=== PATIENT | female | born 2000 | race Caucasian/White ===

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

== ENCOUNTER 2022-01-15 02:00 | Outpatient (CLI) | payer MEDICAID, SELFPAY | END 2022-01-15 02:01 | disposition home or self-care (01) | LOC: DS 02:01 | PROVIDERS: PCP Nurse Practitioner Pediatrics; Visit Provider Dietitian, Registered ==

== ENCOUNTER 2024-11-17 14:11 | Emergency (ER) | payer BC, SELFPAY ==
[2024-11-17 14:25] VITALS: BP 122/77; PULSE 95; RESP 12; TEMP 36.9; O2SAT 98
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
== END 2024-11-17 16:16 | disposition left against medical advice (07) ==
PROVIDERS: Emergency Provider Emergency Medicine; PCP Student in an Organized Health Care Education/Training Program
DX: O20.0 Threatened abortion (principal)
CPT/HCPCS: 80048; 86850; 86900; 86901; 99283; 84702; 85025

== ENCOUNTER 2025-01-05 00:02 | Emergency (ER) | payer BC, SELFPAY ==
[2025-01-05] MEDS: Acetaminophen 325 MG TAB 650 MG PO (01:10)
[2025-01-05 02:17] VITALS: BP 120/63; PULSE 87; RESP 18; TEMP 36.9; O2SAT 97
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
[2025-01-05 03:18] VITALS: BP 106/54; PULSE 94; RESP 16; TEMP 37.2; O2SAT 99
== END 2025-01-05 03:19 | disposition home or self-care (01) ==
PROVIDERS: Emergency Provider Student in an Organized Health Care Education/Training Program; PCP Advanced Practice Midwife
DX: O20.0 Threatened abortion (principal); Z3A.14 14 weeks gestation of pregnancy; W07.XXXA Fall from chair, initial encounter; Z53.20 Procedure and treatment not carried out because of patient's decision for unspecified reasons
CPT/HCPCS: 99283; 99282; 86850; 86900; 86901

== ENCOUNTER 2025-01-25 13:20 | Emergency (ER) | payer BC, MEDICAID, SELFPAY ==
[2025-01-25] VITALS (18 sets, daily range): BP systolic 94–107; BP diastolic 54–67; PULSE 76–100; RESP 14–20; TEMP 36.4; O2SAT 95–100
--- NOTE | 2025-01-25 13:15 | RT.EKG_ITS ---
APPROVED REPORT Exam: Resting ECG Reason for Exam: syncope Patient Location: E HR:85 bpm ECG Measurements Heart Rate 85 AXIS RI 134 P 58 QRSd 90 QRS 9 QT 355 T 13 QTc 422 Conclusion Sinus rhythm...normal P axis, V-rate 60- 99
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
== END 2025-01-25 17:15 | disposition left against medical advice (07) ==
PROVIDERS: Emergency Provider Student in an Organized Health Care Education/Training Program; PCP Advanced Practice Midwife
DX: O26.892 Other specified pregnancy related conditions, second trimester (principal); R55 Syncope and collapse; E86.0 Dehydration; Z59.02 Unsheltered homelessness; O9A.212 Injury, poisoning and certain other consequences of external causes complicating pregnancy, second trimester; W17.89XA Other fall from one level to another, initial encounter; Y93.89 Activity, other specified; Y92.830 Public park as the place of occurrence of the external cause; Z3A.16 16 weeks gestation of pregnancy
CPT/HCPCS: 76815; 80053; 93005; 99285; 70450; 83735; 84484; 85025; 93010; 99284

== ENCOUNTER 2025-03-06 00:29 | Outpatient (CLI) | payer MEDICAID, SELFPAY ==
--- NOTE | 2025-03-06 07:30 | DI.US_ITS ---
Exam(s) US OB 2-3 TRIMESTER EXAM: US OB 2-3 TRIMESTER CLINICAL HISTORY: Anatomy,z34.91. TECHNIQUE: Transabdominal obstetrical ultrasound performed. COMPARISON: No exams were available for comparison FINDINGS: Number of fetuses: 1 position: VARIED heart rate: 140bpm Placental location: There is a grade 1 anterior placenta. The placental tip is 4.6 cm from the internal os. No evidence of previa. Amniotic fluid index: Amount of fluid is within normal limits. ANATOMICAL SURVEY: Within normal limits. BIOMETRIC DATA: BPD: 5.75cm, 23weeks 4days HC: 20.68cm, 22weeks 5days AC: 17.55cm, 22weeks 3days FL: 3.64cm, 21weeks 4days Cisterna magna: 4.3mm Cerebellum: 2.25cm Lateral ventricle: 0.6 cm. EFW: 483.51g, 1lb 1.75oz, 61.9% Composite Age: 22weeks 4days ERICA: 07/06/2025 Heart Rate: 140bpm ANATOMICAL SURVEY: Four-chambered heart: Unremarkable. RVOT: Unremarkable. LVOT: Unremarkable. Left-sided stomach: Unremarkable. urinary bladder: Unremarkable. Bilateral kidneys: Unremarkable. Three-vessel cord: Unremarkable. Cord insertion: Unremarkable. Posterior fossa: Unremarkable. ventricles: Unremarkable. nose/lips: Unremarkable. Palate: Unremarkable. spine: Unremarkable. Two arms and two legs: Unremarkable. IMPRESSION: 1. Single live intrauterine gestation as above. 2. Normal anatomic survey. DATA REPOSITORY:
== END 2025-03-06 00:49 ==
PROVIDERS: Visit Provider Advanced Practice Midwife
DX: Z34.92 Encounter for supervision of normal pregnancy, unspecified, second trimester (principal); Z3A.20 20 weeks gestation of pregnancy
CPT/HCPCS: 76805

== ENCOUNTER 2025-03-21 11:18 | Outpatient (REF) | payer MEDICAID, SELFPAY ==
[2025-03-21 14:00] LABS: Cannabinoids THC Negative (Negative); METHADONE URINE SCREEN Negative (Negative)
[2025-03-22 11:53] LABS: Chlamydia Result Negative (Negative); GC Result Negative (Negative)
[2025-03-22 11:54] LABS: Fentanyl Scr w/Rfx Confirm Negative ng/mL (<1)
== END 2025-03-21 11:19 | disposition home or self-care (01) ==
LOC: LBN 11:18
PROVIDERS: Visit Provider Advanced Practice Midwife
DX: Z34.92 Encounter for supervision of normal pregnancy, unspecified, second trimester
CPT/HCPCS: 36415; 80053; 80307; 80348; 86787; 86803; 86850; 86900; 86901; 87340; 87389; 87491; 87591; 84443; 85025; 86762; 86780; 87086

== ENCOUNTER 2025-05-22 13:52 | Outpatient (REF) | payer BC, MEDICAID, SELFPAY ==
[2025-05-22 16:18] LABS: Cannabinoids THC Negative (Negative); METHADONE URINE SCREEN Negative (Negative)
[2025-05-23 11:37] LABS: Fentanyl Scr w/Rfx Confirm Negative ng/mL (<1)
== END 2025-05-22 13:53 | disposition home or self-care (01) ==
LOC: LBN 13:52
PROVIDERS: Visit Provider Advanced Practice Midwife
DX: Z34.93 Encounter for supervision of normal pregnancy, unspecified, third trimester
CPT/HCPCS: 80307; 80348

== ENCOUNTER 2025-05-28 07:23 | Outpatient (CLI) | payer BC, MEDICAID, SELFPAY ==
[2025-05-28] MEDS: Lidocaine/Prilocaine Cream 5 GM TUBE TP (10:17)
[2025-05-28 10:26] VITALS: BP 117/71; PULSE 86; TEMP 36.8
[2025-05-28 10:29] VITALS: BP 117/71; PULSE 86
[2025-05-28 12:24] LABS: HCT 31.4 % (36.0-46.0); HGB 10.5 g/dL (11.2-15.7); MCH 28.6 pg (27.0-33.0); MCHC 33.4 % (32.0-36.0); MCV 86 fL (80-95); MPV 10.4 fL (8.0-11.0); Platelet Count 300 10^3/uL (130-400); RBC 3.67 10^6/uL (3.93-5.22); RDW 12.2 % (11.7-14.6); RDW-SD 37.4 fL; WBC 13.18 10^3/uL (4.4-10.8)
[2025-05-28 16:51] LABS: Hemoglobin A1C 5.0 % (<5.7)
--- NOTE | 2025-05-28 17:04 | W.OBNST ---
Date of service: 05/28/25 Time of Service: 12:00 NST Evaluation Reason for NST Reasons for Nonstress Test: OTHER, SEE COMMENT Reason for NST Other: inadequate care Gestational Age Gestational Age in Weeks and Days: 33 Weeks and 5Days Test and Monitor Explained Test/Monitor Explained: Test Explained and Monitor Explained Vital Signs Blood Pressure: 117/71 Pulse: 86 Temperature: 98.2 F NST Information Date on Monitor: 05/28/25 Time on Monitor: 10:22 Date off Monitor: 05/28/25 Time off Monitor: 10:53 Total Time on Monitor: 31 NST Interventions: PO Hydration and Meal Given Contraction Frequency: None NST Evaluation Patient States Movement: Present FHR Baseline: 135 Variability: Moderate 6-25 bpm Accelerations: 15x15 Decelerations: None NST Results: Reactive Note Ultrasound Done: N/A. NST Note NST Reviewed and Verified by: Alberta Gregory
[2025-05-28 17:05] VITALS: BP 117/71; PULSE 86; TEMP 36.8
[2025-05-29 09:57] LABS: Hepatitis C Ab w Rflx HCV PCR Negative (Negative)
[2025-05-29 10:14] LABS: Rubella IgG Ab (UVM) Positive (See Note)
[2025-05-29 11:16] LABS: Cannabinoids THC Negative (Negative); METHADONE URINE SCREEN Negative (Negative)
[2025-05-29 11:39] LABS: Fentanyl Scr w/Rfx Confirm Negative ng/mL (<1)
[2025-05-29 11:54] LABS: HIV-1/2 Ag & Ab Screen Negative (Negative)
[2025-05-29 13:29] LABS: Chlamydia Result Negative (Negative); GC Result Negative (Negative)
[2025-05-30 18:02] LABS: Syphilis IgG w/Reflex Nonreactive (Nonreactive)
== END 2025-05-28 13:30 ==
LOC: NCHCN 07:23 → OBS 09:56
PROVIDERS: Advanced Practice Midwife; Visit Provider Advanced Practice Midwife
DX: Z3A.33 33 weeks gestation of pregnancy (principal); O09.33 Supervision of pregnancy with insufficient antenatal care, third trimester
CPT/HCPCS: 36415; 80307; 80348; 82950; 85027; 86787; 86803; 86850; 86900; 86901; 87340; 87389; 87491; 87591; 59025; 83036; 86762; 86780

== ENCOUNTER 2025-06-04 08:45 | Outpatient (CLI) | payer BC, MEDICAID, SELFPAY ==
[2025-06-04 10:15] VITALS: BP 133/80; PULSE 102; RESP 18; TEMP 36.8; O2SAT 96
[2025-06-04 10:59] VITALS: BP 133/80; PULSE 97; TEMP 36.8
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
[2025-06-04 13:55] LABS: Glucose Negative (Negative)
[2025-06-04 14:02] LABS: C & S Indicated? No; RBC Negative HPF (0-2); WBC 0-2 HPF (0-5)
[2025-06-04 14:19] LABS: Fetal Fibronectin Negative (Negative)
--- NOTE | 2025-06-04 15:33 | W.OBNST ---
Date of service: 06/04/25 Time of Service: 15:33 NST Evaluation Reason for NST Reasons for Nonstress Test: LABOR Gestational Age Gestational Age in Weeks and Days: 34 Weeks and 5Days Test and Monitor Explained Test/Monitor Explained: Test Explained, Monitor Explained and Patient Verbalized Understanding Vital Signs Blood Pressure: 133/80 Pulse: 97 Temperature: 98.2 F NST Information Date on Monitor: 06/04/25 Time on Monitor: 10:45 NST Interventions: PO Hydration and Notify Provider NST Evaluation Patient States Movement: Present Note Ultrasound Done: N/A. NST Note Note: Sully called this morning and reported vaginal bleeding and cramping. She had intercourse last night. No evidence of labor. UA shows ketones. Neg blood or leukocytes or nitrites. Contraction monitoring limited by habitus. US performed and is WNL and vertex with >5 cm cervical length. Sterile speculum exam - no blood visualized. FFN taken and neg. Vaginal pathogen screen neg. GBS taken Cervical exam. No presenting part in pelvis and cervix long and closed. pelvic rest recommended x 1 week. Signs of labor reviewed. rest encouraged. NST Reviewed and Verified by: Chante De Leon
[2025-06-04 15:37] VITALS: BP 133/80; PULSE 97; TEMP 36.8
[2025-06-04] MEDS: Loperamide 2 MG CAP 4 MG PO (15:59)
--- NOTE | 2025-06-05 07:01 | W.OBNST ---
Date of service: 06/04/25 Time of Service: 17:00 NST Evaluation Reason for NST Reasons for Nonstress Test: LABOR Gestational Age Gestational Age in Weeks and Days: 34 Weeks and 5Days Test and Monitor Explained Test/Monitor Explained: Test Explained, Monitor Explained and Patient Verbalized Understanding Vital Signs Blood Pressure: 133/80 Pulse: 97 Temperature: 98.2 F NST Information Date on Monitor: 06/04/25 Time on Monitor: 10:45 Date off Monitor: 06/04/25 Time off Monitor: 11:05 Total Time on Monitor: 20 NST Interventions: PO Hydration and Notify Provider Contraction Frequency: none NST Evaluation Patient States Movement: Present FHR Baseline: 145 Variability: Moderate 6-25 bpm Accelerations: 15x15 Decelerations: None NST Results: Reactive Note Ultrasound Done: N/A. NST Note Note: Sully came in reporting cramping and nausea and diarrhea. She was drinking rootbeer on arrival and reported that nausea had improved. The cramping began at 0200 and was followed by diarrhea. SPO fluids were provided. She declined speculum exam but vaginal pathogen screen and gbs were taken as well as FFN swab. UA was WNL without culture indicated. SVE performed and cervix was post/closed and 50% effaced. Vidya ate lunch. US ordered for tomorrow morning for size less than dates. She declined GTT draw today. Will reschedule GTT. She was discharged to home with instructios to attend US appt. tomorrow and call with worsening pain or persistent symptoms. NST Reviewed and Verified by: Chante De Leon
[2025-06-05 07:05] VITALS: BP 133/80; PULSE 97; TEMP 36.8
== END 2025-06-04 16:09 ==
LOC: BCD 08:45 → OBS 10:10
PROVIDERS: Visit Provider Advanced Practice Midwife
DX: O47.03 False labor before 37 completed weeks of gestation, third trimester (principal); Z3A.34 34 weeks gestation of pregnancy
CPT/HCPCS: 59025; 81003; 81015; 82731; 87081; 87480; 87510; 87660

== ENCOUNTER 2025-06-05 03:31 | Outpatient (CLI) | payer BC, MEDICAID, SELFPAY ==
--- NOTE | 2025-06-05 05:45 | DI.US_ITS ---
Exam(s) US OB FILIBERTO WEIGHT EXAM: US OB FILIBERTO WEIGHT CLINICAL HISTORY: size less than dates,fundal ht low,O26.849. TECHNIQUE: Transabdominal obstetrical ultrasound performed. COMPARISON: US US OB 2-3 TRIMESTER from 03/06/2025 FINDINGS: Number of fetuses: 1 position: CEPHALIC Placental location: There is a grade 1-2 anterior placenta. No evidence of previa. BIOMETRIC DATA: BPD: 8.97cm, 36weeks 2days HC: 32.78cm, 37weeks 2days AC: 29.5cm, 33weeks 3days FL: 6.23cm, 32weeks 2days EFW: 2,271g, 5lb 1.94oz, 18.4% Composite Age: 34weeks 6days ERICA: 07/11/2025 Heart Rate: 133bpm Amniotic fluid index: 18.98cm. The largest pocket measures 7.3 cm. IMPRESSION: 1. Single live intrauterine gestation as above. 2. Estimated weight is 2271gms. This is the 18th percentile. The femur length is in the less than 10th percentile. 3. Amniotic fluid index is 19 cm. The largest pocket measures 7.3 cm. DATA REPOSITORY:
== END 2025-06-05 03:51 ==
PROVIDERS: Visit Provider Advanced Practice Midwife
DX: O26.843 Uterine size-date discrepancy, third trimester (principal); Z3A.37 37 weeks gestation of pregnancy
CPT/HCPCS: 76816

== ENCOUNTER 2025-06-18 01:11 | Outpatient (CLI) | payer MEDICAID, SELFPAY ==
--- NOTE | 2025-06-18 07:15 | DI.US_ITS ---
Exam(s) US OB FILIBERTO WEIGHT EXAM: US OB FILIBERTO WEIGHT CLINICAL HISTORY: History of inadequate care, O09.30. TECHNIQUE: Transabdominal obstetrical ultrasound performed. COMPARISON: US US OB FILIBERTO WEIGHT from 06/05/2025 FINDINGS: Number of fetuses: 1 position: CEPHALIC Placental location: There is a grade 1 anterior placenta. No evidence of previa. BIOMETRIC DATA: BPD: 9.06cm, 36weeks 5days HC: 33.04cm, 37weeks 4days AC: 32.32cm, 36weeks 2days FL: 6.55cm, 33weeks 5days. This is the less than 3rd percentile. EFW: 2,771.06g, 6lb 3.36oz, 30.1% Composite Age: 36weeks 1day ERICA: 07/15/2025 Heart Rate: 153bpm Amniotic fluid index: 21.68cm. The largest pocket is 6.2 cm. IMPRESSION: 1. Single live intrauterine gestation as above. 2. Estimated weight is 2771gms. This is the 30th percentile. 3. Amniotic fluid index is 21.7 cm. The largest pocket is 6.2 cm. DATA REPOSITORY:
== END 2025-06-18 01:31 ==
LOC: DI 01:12
PROVIDERS: Visit Provider Family Medicine
DX: O09.33 Supervision of pregnancy with insufficient antenatal care, third trimester (principal)
CPT/HCPCS: 76816

== ENCOUNTER 2025-07-02 13:29 | Outpatient (REF) | payer MEDICAID, SELFPAY | END 2025-07-02 13:30 | disposition home or self-care (01) | LOC: LBN 13:29 | PROVIDERS: Visit Provider Advanced Practice Midwife | DX: Z34.93 Encounter for supervision of normal pregnancy, unspecified, third trimester | CPT/HCPCS: 87081 ==

== ENCOUNTER 2025-07-08 10:45 | Outpatient (CLI) | payer MEDICAID, SELFPAY ==
[2025-07-08 10:48] VITALS: BP 134/83; PULSE 105; TEMP 36.7
[2025-07-08 10:54] VITALS: BP 134/94; PULSE 99
[2025-07-08 11:11] VITALS: BP 134/83; PULSE 105
[2025-07-08 11:54] VITALS: BP 127/90; PULSE 99
[2025-07-08] MEDS: Acetaminophen 500 MG TAB 1000 MG PO (11:54)
--- NOTE | 2025-07-08 11:54 | PDOC.NST_ITS ---
Date of service: 07/08/25 Time of Service: 11:54 NST Evaluation Reason for NST Reasons for Nonstress Test: OTHER, SEE COMMENT Reason for NST Other: confirm FHR baseline Gestational Age Gestational Age in Weeks and Days: 39 Weeks and 4Days Test and Monitor Explained Test/Monitor Explained: Test Explained, Monitor Explained and Patient Verbalized Understanding Vital Signs Blood Pressure: 134/83 Pulse: 105 Temperature: 98.1 F NST Information Date on Monitor: 07/08/25 Time on Monitor: 10:51 Date off Monitor: 07/08/25 Time off Monitor: 11:55 Total Time on Monitor: 64 NST Interventions: PO Hydration Contraction Frequency: rare NST Evaluation Patient States Movement: Present FHR Baseline: 120 Variability: Moderate 6-25 bpm Accelerations: 15x15 Decelerations: None NST Results: Reactive Note Ultrasound Done: N/A. NST Note Note: Scheduled for IOL tomorrow @ 39 wks for elective/social concern, FOB being released [facility] [place] [facility] tomorrow and pt concerned for safety, referral to [facility] already in place Noted mild range BP today with dyastolic @ 90, CMP and CBC drawn and urine pr/cr sent Will call pt with results, consider starting IOL this afternoon if pt meets criteria for pre-eclampsia NST Reviewed and Verified by: Hyacinth Wong
[2025-07-08 11:57] VITALS: BP 134/83; PULSE 105; TEMP 36.7
[2025-07-08 12:37] LABS: HCT 31.4 % (36.0-46.0); HGB 10.5 g/dL (11.2-15.7); MCH 27.6 pg (27.0-33.0); MCHC 33.4 % (32.0-36.0); MCV 83 fL (80-95); MPV 10.1 fL (8.0-11.0); Platelet Count 332 10^3/uL (130-400); RBC 3.80 10^6/uL (3.93-5.22); RDW 12.6 % (11.7-14.6); RDW-SD 37.9 fL; WBC 16.40 10^3/uL (4.4-10.8)
[2025-07-08 13:06] LABS: ALT 9 U/L (14-59); AST 9 U/L (15-37); Albumin 2.4 g/dL (3.4-5.0); Alkaline Phosphatase 184 U/L (46-116); Anion Gap 11.7 mmol/L (3-11); BUN 6 mg/dL (7-18); Bilirubin, Total 0.2 mg/dL (0.2-1.0); CO2 22.3 mmol/L (21.0-32.0); Calcium 9.1 mg/dL (8.5-10.1); Chloride 104 mmol/L (98-107); Estimated GFR 135.07 (mL/min/1.73m2); Glucose 105 mg/dL (74-106); Potassium 3.7 mmol/L (3.5-5.1); Sodium 138 mmol/L (136-145); Total Protein 7.2 g/dL (6.4-8.2)
[2025-07-08 13:08] LABS: PROTEIN < 6.0 mg/dL
== END 2025-07-08 12:50 ==
LOC: BCD 10:45 → OBS 10:47
PROVIDERS: Visit Provider Advanced Practice Midwife
DX: Z3A.39 39 weeks gestation of pregnancy (principal); O36.8331 Maternal care for abnormalities of the fetal heart rate or rhythm, third trimester, fetus 1
CPT/HCPCS: 80053; 85027; 59025; 82565; 84156

== ENCOUNTER 2025-07-09 14:44 | Inpatient (IN) | payer MEDICAID, SELFPAY ==
[2025-07-09 14:07] VITALS: BP 127/85; PULSE 105; TEMP 36.7
[2025-07-09 15:40] LABS: Cannabinoids THC Negative (Negative)
[2025-07-09 15:41] LABS: Abs Immature Grans 0.25 10^3/uL (0.0-0.06); HCT 29.9 % (36.0-46.0); HGB 9.8 g/dL (11.2-15.7); Immature Grans % 1.7 %; MCH 27.0 pg (27.0-33.0); MCHC 32.8 % (32.0-36.0); MCV 82 fL (80-95); MPV 10.1 fL (8.0-11.0); Platelet Count 314 10^3/uL (130-400); RBC 3.63 10^6/uL (3.93-5.22); RDW 12.7 % (11.7-14.6); RDW-SD 38.0 fL; WBC 14.55 10^3/uL (4.4-10.8)
[2025-07-09 15:55] LABS: Uric Acid 3.1 mg/dL (2.6-6.0)
[2025-07-09 15:57] LABS: ALT 10 U/L (14-59); AST 9 U/L (15-37); Albumin 2.3 g/dL (3.4-5.0); Alkaline Phosphatase 172 U/L (46-116); Anion Gap 10.0 mmol/L (3-11); BUN 9 mg/dL (7-18); Bilirubin, Total 0.2 mg/dL (0.2-1.0); CO2 22.0 mmol/L (21.0-32.0); Calcium 8.7 mg/dL (8.5-10.1); Chloride 105 mmol/L (98-107); Glucose 81 mg/dL (74-106); Potassium 4.0 mmol/L (3.5-5.1); Sodium 137 mmol/L (136-145); Total Protein 7.0 g/dL (6.4-8.2)
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
[2025-07-09] MEDS: miSOPROStol 50 MCG TAB PO ×2 (16:50→21:39)
[2025-07-09 16:53] VITALS: BP 129/71; PULSE 106; TEMP 36.4
[2025-07-09 18:38] VITALS: BP 128/69; PULSE 91; TEMP 37
--- NOTE | 2025-07-09 21:36 | W.PM.OBNL1 ---
Date of service: 07/09/25 Time of Service: 21:36 Informed Consent Informed Consent: Induction of Labor Pelvic Exam Dilation: 1.5 Effacement (%): 75 station: -2 Cervix Position: mid Consistency: soft Vaginal Exam Presentation: Cephalic Contractions Monitor Mode: External Contraction Frequency(min): every 2-4 Contraction Duration(sec): 60 Intensity: Mild/Moderate Fetus A Monitor: External (US) Heart Rate Baseline: 120 Presentation: Cephalic Variability: Moderate (6-25 BPM) Categories: Category I FHR Rhythm: Regular Accelerations: 15 X 15 Decelerations: None Assessment and Plan Assessment and plan (1) Encounter for induction of labor: Status: Acute Assessment and plan: Comfort measures and nitrous oxide for discomfort. Will continue to assess labor progress. Anticipate . (2) Anemia affecting : Status: Acute Assessment and plan: I.V. access and active management of 3rd stage planned. Objective Abnormal lab results 07/09/25 Range/Units 15:30 WBC 14.55 H (4.4-10.8) 10^3/uL RBC 3.63 L (3.93-5.22) 10^6/uL Hgb 9.8 L (11.2-15.7) g/dL Hct 29.9 L (36.0-46.0) % Absolute Neutrophils 10.40 H (1.2-6.7) 10^3/uL Absolute Monocytes 1.27 H (0.1-0.8) 10^3/uL Creatinine 0.5 L (0.55-1.02) mg/dL AST 9 L (15-37) U/L ALT 10 L (14-59) U/L Alkaline Phosphatase 172 H (46-116) U/L Albumin 2.3 L (3.4-5.0) g/dL Temp Pulse BP 98.6 F 91 H 128/69 07/09/25 18:38 07/09/25 18:38 07/09/25 18:38 Laboratory Results WBC 14.55 10^3/uL (4.4-10.8) H 07/09/25 15:30 RBC 3.63 10^6/uL (3.93-5.22) L 07/09/25 15:30 Hgb 9.8 g/dL (11.2-15.7) L 07/09/25 15:30 Hct 29.9 % (36.0-46.0) L 07/09/25 15:30 MCV 82 fL (80-95) 07/09/25 15:30 MCH 27.0 pg (27.0-33.0) 07/09/25 15:30 MCHC 32.8 % (32.0-36.0) 07/09/25 15:30 RDW 12.7 % (11.7-14.6) 07/09/25 15:30 Plt Count 314 10^3/uL (130-400) 07/09/25 15:30 MPV 10.1 fL (8.0-11.0) 07/09/25 15: Immature Gran % 1.7 % 07/09/25 15:30 Neutrophils % 71.5 % 07/09/25 15:30 Lymphocytes % 17.0 % 07/09/25 15:30 Monocytes % 8.7 % 07/09/25 15:30 Eosinophils % 0.7 % 07/09/25 15:30 Basophils % 0.4 % 07/09/25 15:30 Nucleated RBC % 0.0 % (0.0-0.3) 07/09/25 15:30 Absolute Neutrophils 10.40 10^3/uL (1.2-6.7) H 07/09/25 15:30 Absolute Lymphocytes 2.47 10^3/uL (1.2-3.4) 07/09/25 15:30 Absolute Monocytes 1.27 10^3/uL (0.1-0.8) H 07/09/25 15:30 Absolute Eosinophils 0.10 10^3/uL (0.0-0.7) 07/09/25 15:30 Absolute Basophils 0.06 10^3/uL (0.0-0.2) 07/09/25 15:30 Sodium 137 mmol/L (136-145) 07/09/25 15:30 Potassium 4.0 mmol/L (3.5-5.1) 07/09/25 15:30 Chloride 105 mmol/L (98-107) 07/09/25 15:30 Carbon Dioxide 22.0 mmol/L (21.0-32.0) 07/09/25 15:30 Anion Gap 10.0 mmol/L (3-11) 07/09/25 15:30 BUN 9 mg/dL (7-18) 07/09/25 15:30 Creatinine 0.5 mg/dL (0.55-1.02) L 07/09/25 15:30 Est GFR (CKD-EPI 2020) 135.07 (mL/min/1.73m2) 07/09/25 15:30 Glucose 81 mg/dL (74-106) 07/09/25 15:30 Uric Acid 3.1 mg/dL (2.6-6.0) 07/09/25 15:30 Calcium 8.7 mg/dL (8.5-10.1) 07/09/25 15:30 Total Bilirubin 0.2 mg/dL (0.2-1.0) 07/09/25 15:30 AST 9 U/L (15-37) L 07/09/25 15:30 ALT 10 U/L (14-59) L 07/09/25 15:30 Alkaline Phosphatase 172 U/L (46-116) H 07/09/25 15:30 Total Protein 7.0 g/dL (6.4-8.2) 07/09/25 15:30 Albumin 2.3 g/dL (3.4-5.0) L 07/09/25 15:30 Urine Opiates Screen Negative (Negative) 07/09/25 14:00 Urine Methadone Screen Negative (Negative) 07/09/25 14:00 Ur Barbiturates Screen Negative (Negative) 07/09/25 14:00 Ur Tricyclics Screen Negative (Negative) 07/09/25 14:00 Ur Amphetamines Screen Negative (Negative) 07/09/25 14:00 U Benzodiazepines Scrn Negative (Negative) 07/09/25 14:00 Urine Cocaine Screen Negative (Negative) 07/09/25 14:00 Ur THC Screen Negative (Negative) 07/09/25 14:00 ABO/Rh A Positive 07/09/25 15:30 Antibody Screen NEGATIVE 07/09/25 15:30 Vital Signs Reviewed: Yes Subjective Patient Reports: New Complaints Interval history since last seen: Sully took a nap. She is experiencing discomfort with contractions. Results Hemoglobin/Hematocrit: Hgb 9.8 g/dL (11.2-15.7) L 07/09/25 15:30 Hct 29.9 % (36.0-46.0) L 07/09/25 15:30 Abnormal Lab Findings: Abnormal Labs 07/09/25 15:30 WBC 14.55 H RBC 3.63 L Hgb 9.8 L Hct 29.9 L Absolute Neutrophils 10.40 H Absolute Monocytes 1.27 H Creatinine 0.5 L AST 9 L ALT 10 L Alkaline Phosphatase 172 H Albumin 2.3 L
[2025-07-09] MEDS: Normal Saline Flush 10 ML SYR IVP (21:39)
[2025-07-09 21:42] VITALS: BP 131/85; PULSE 100
[2025-07-09 21:44] VITALS: TEMP 36.6
[2025-07-09] MEDS: NALBUPHINE 5 MG in Normal Saline 50 ML 100 MG IV (23:11)
[2025-07-10] VITALS (16 sets, daily range): BP systolic 107–155; BP diastolic 61–92; PULSE 84–109; RESP 16–20; TEMP 36.5–37; O2SAT 96–98
[2025-07-10] MEDS: NALBUPHINE 5 MG in Normal Saline 50 ML 100 MG IV (00:41)
[2025-07-10] MEDS: Normal Saline Flush 10 ML SYR IVP (00:53)
--- NOTE | 2025-07-10 01:51 | W.PM.OBNL1 ---
Date of service: 07/10/25 Time of Service: 01:51 Informed Consent Informed Consent: Induction of Labor Pelvic Exam Dilation: 5 Effacement (%): 100 station: -1 Cervix Position: mid Consistency: soft Vaginal Exam Presentation: Cephalic Contractions Monitor Mode: External Contraction Frequency(min): every 3 min Contraction Duration(sec): 60 Intensity: Moderate/Strong Fetus A Monitor: Doppler Heart Rate Baseline: 120 Presentation: Cephalic Decelerations: None Amniotic Membrane Status: Intact Assessment and Plan Assessment and plan (1) Encounter for induction of labor: Status: Acute Assessment and plan: fentanyl IV 25 mcg ordered. Will assist with position changes and consider AROM. Anticpate . Objective Abnormal lab results 07/09/25 Range/Units 15:30 WBC 14.55 H (4.4-10.8) 10^3/uL RBC 3.63 L (3.93-5.22) 10^6/uL Hgb 9.8 L (11.2-15.7) g/dL Hct 29.9 L (36.0-46.0) % Absolute Neutrophils 10.40 H (1.2-6.7) 10^3/uL Absolute Monocytes 1.27 H (0.1-0.8) 10^3/uL Creatinine 0.5 L (0.55-1.02) mg/dL AST 9 L (15-37) U/L ALT 10 L (14-59) U/L Alkaline Phosphatase 172 H (46-116) U/L Albumin 2.3 L (3.4-5.0) g/dL Temp Pulse BP 98 F 85 132/72 07/09/25 21:44 07/10/25 00:43 07/10/25 00:43 Laboratory Results WBC 14.55 10^3/uL (4.4-10.8) H 07/09/25 15:30 RBC 3.63 10^6/uL (3.93-5.22) L 07/09/25 15:30 Hgb 9.8 g/dL (11.2-15.7) L 07/09/25 15:30 Hct 29.9 % (36.0-46.0) L 07/09/25 15:30 MCV 82 fL (80-95) 07/09/25 15:30 MCH 27.0 pg (27.0-33.0) 07/09/25 15:30 MCHC 32.8 % (32.0-36.0) 07/09/25 15:30 RDW 12.7 % (11.7-14.6) 07/09/25 15:30 Plt Count 314 10^3/uL (130-400) 07/09/25 15:30 MPV 10.1 fL (8.0-11.0) 07/09/25 15:30 Immature Gran % 1.7 % 07/09/25 15:30 Neutrophils % 71.5 % 07/09/25 15:30 Lymphocytes % 17.0 % 07/09/25 15:30 Monocytes % 8.7 % 07/09/25 15:30 Eosinophils % 0.7 % 07/09/25 15:30 Basophils % 0.4 % 07/09/25 15:30 Nucleated RBC % 0.0 % (0.0-0.3) 07/09/25 15:30 Absolute Neutrophils 10.40 10^3/uL (1.2-6.7) H 07/09/25 15:30 Absolute Lymphocytes 2.47 10^3/uL (1.2-3.4) 07/09/25 15:30 Absolute Monocytes 1.27 10^3/uL (0.1-0.8) H 07/09/25 15:30 Absolute Eosinophils 0.10 10^3/uL (0.0-0.7) 07/09/25 15:30 Absolute Basophils 0.06 10^3/uL (0.0-0.2) 07/09/25 15:30 Sodium 137 mmol/L (136-145) 07/09/25 15:30 Potassium 4.0 mmol/L (3.5-5.1) 07/09/25 15:30 Chloride 105 mmol/L (98-107) 07/09/25 15:30 Carbon Dioxide 22.0 mmol/L (21.0-32.0) 07/09/25 15:30 Anion Gap 10.0 mmol/L (3-11) 07/09/25 15:30 BUN 9 mg/dL (7-18) 07/09/25 15:30 Creatinine 0.5 mg/dL (0.55-1.02) L 07/09/25 15:30 Est GFR (CKD-EPI 2020) 135.07 (mL/min/1.73m2) 07/09/25 15:30 Glucose 81 mg/dL (74-106) 07/09/25 15:30 Uric Acid 3.1 mg/dL (2.6-6.0) 07/09/25 15:30 Calcium 8.7 mg/dL (8.5-10.1) 07/09/25 15:30 Total Bilirubin 0.2 mg/dL (0.2-1.0) 07/09/25 15:30 AST 9 U/L (15-37) L 07/09/25 15:30 ALT 10 U/L (14-59) L 07/09/25 15:30 Alkaline Phosphatase 172 U/L (46-116) H 07/09/25 15:30 Total Protein 7.0 g/dL (6.4-8.2) 07/09/25 15:30 Albumin 2.3 g/dL (3.4-5.0) L 07/09/25 15:30 Urine Opiates Screen Negative (Negative) 07/09/25 14:00 Urine Methadone Screen Negative (Negative) 07/09/25 14:00 Ur Barbiturates Screen Negative (Negative) 07/09/25 14:00 Ur Tricyclics Screen Negative (Negative) 07/09/25 14:00 Ur Amphetamines Screen Negative (Negative) 07/09/25 14:00 U Benzodiazepines Scrn Negative (Negative) 07/09/25 14:00 Urine Cocaine Screen Negative (Negative) 07/09/25 14:00 Ur THC Screen Negative (Negative) 07/09/25 14:00 ABO/Rh A Positive 07/09/25 15:30 Antibody Screen NEGATIVE 07/09/25 15:30 Subjective Patient Reports: New Complaints Interval history since last seen: Sully received 2 doses of nubain with fair effect but is now not tolerating her contractions well. She requests pain medication. Position changes and epidural analgesia offered and declined. Results Hemoglobin/Hematocrit: Hgb 9.8 g/dL (11.2-15.7) L 07/09/25 15:30 Hct 29.9 % (36.0-46.0) L 07/09/25 15:30 Abnormal Lab Findings: Abnormal Labs 07/09/25 15:30 WBC 14.55 H RBC 3.63 L Hgb 9.8 L Hct 29.9 L Absolute Neutrophils 10.40 H Absolute Monocytes 1.27 H Creatinine 0.5 L AST 9 L ALT 10 L Alkaline Phosphatase 172 H Albumin 2.3 L
[2025-07-10] MEDS: Lactated Ringers 1,000 ML 500 ML IV (02:00)
[2025-07-10] MEDS: fentaNYL 100 MCG/2 ML VIAL 25 MCG IVP (02:07)
[2025-07-10] MEDS: Oxytocin/Normal Saline 30 UNIT/500 ML BAG 167 UNITS IV (02:42)
[2025-07-10] MEDS: Hamamelis Leaf/Glycerin 100 EACH BOX PR (03:45)
[2025-07-10] MEDS: Dibucaine 1% 28 GM TUBE TP ×2 (03:46→20:28)
--- NOTE | 2025-07-10 10:29 | OBVDS_ITS ---
Date of service: 07/10/25 Time of Service: 10: OB Labor/ Delivery Information Baby A Delivery Delivery Method: Spontaneaous Presentation: Cephalic Vertex Position: Left Occipital Posterior Breech Position: N/A Cord Description-Baby A: 3 Vessels Cord Description Comment: normal Amniotic Fluid: Clear Estimated Blood Loss: 250 Delivery Outcome: Liveborn Infant Transferred: Remains with Mother Note: Sully had a small gush of clear fluid which was nitrazine positive approximately an hour before full dilation. She was having difficulty coping with contraction pain and was given 2 doses of nubain and one dose of fentanyl with good effect and used nitrous oxide with good effect. FHTs 120s during first stage of labor. FHTs 120s in second stage. She progressed to full dilation quickly and began pushing. Second stage huddle was done. Spontaneous delivery of male infant delivered in ANUPAM position in the sac and restituted to LOP. There was a delay of approximately 5-10 seconds before the shoulders d elivered and Sully was assisted to Palu position and the shoulders delivered easily. Baby was placed on mother's abdomen and dried and stimulated. Spontaneous cry. Cord was clamped and cut by the baby's grandmother. The placenta delivered spontaneously and appears to by intact with a three vessel cord. Pitocin 30 units IV was administered before delivery of the placenta. The perineum was inspected and it was intact. The baby did breastfeed. After delivery, Mother and baby were stable and bonding well in the delivery room and there were no complications. His name is Jeremy and he weighed 6-11. Providers Nurse Pattern Chain Maker Supervisor: Chante De Leon Nurse: Alberta Min Nurse: Anel Ribeiro Other: Carmen Gavin Labor/Delivery Information Number of Babies in Womb: 1 Steroids Given: None Reason Steroids Not Administered: N/A Group Beta Strep: Negative Antibiotics Administered: No Rubella Status: Immune Blood Type: A+ Varicella Immunity: Immune Medication in Delivery: PP IV pit Maternal Complications: None Shoulder Dystocia: No Stages of Labor Onset of Labor Date: 07/09/25 Onset of Labor Time: 16:50 Complete Dilatation Date: 07/10/25 Complete Dilatation Time: 02:31 Labor - Stage 1 Duration: 9 hours and 41 minutes ROM Baby A: 07/10/25 ROM Baby A: 02:10 Infant Delivery Date-Baby A: 07/10/25 Infant Delivery Time-Baby A: 02:41 Labor Stage 2 Duration: 10 minutes Placenta Delivery Date-Baby A: 07/10/25 Placenta Delivery Time-Baby A: 02:47 Labor-Stage 3 Duration: 6 minutes Total Length of Labor-Baby A: 9 hours and 51 minutes Placenta Cultured: No Placenta Status: Delivered Baby A Infant Gender: Male Gestational Status: Term (39-41.6 wks) Gestational Age in Weeks/Days: 39 Weeks and 6 Days Score-1 Minute Interval(Baby A) Heart Rate-1 minute: 100 BPM or Greater Respiratory Effort- 1 minute: Spontaneous/Strong Cry Muscle Tone-1 minute: Minimal Flexion/Extension Reflex Response-1 minute: Prompt Response Color-1 minute: Bluish Hands or Feet Total Score-1 minute: 8 Score-5 Minute Interval(Baby A) Heart Rate- 5 minute: 100 BPM or Greater Respiratory Effort-5 minute: Spontaneous/Strong Cry Muscle Tone-5 minute: Active Movement Reflex Response-5 minute: Prompt Response Color-5 minute: Bluish Hands or Feet Total Score- 5 minute: 9
[2025-07-10 11:50] LABS: Fentanyl Scr w/Rfx Confirm Negative ng/mL (<1)
[2025-07-10] MEDS: Acetaminophen 325 MG TAB 650 MG PO ×2 (12:59→20:28)
[2025-07-10] MEDS: Ibuprofen 600 MG TAB PO ×2 (12:59→20:28)
[2025-07-10] MEDS: Docusate Sodium 100 MG CAP PO (12:59)
[2025-07-11] MEDS: Ibuprofen 600 MG TAB PO ×3 (06:14→20:28)
[2025-07-11] MEDS: Docusate Sodium 100 MG CAP PO ×2 (06:14→17:31)
[2025-07-11] MEDS: Acetaminophen 325 MG TAB 650 MG PO ×3 (06:14→20:27)
[2025-07-11] MEDS: Hamamelis Leaf/Glycerin 100 EACH BOX PR (06:30)
[2025-07-11] MEDS: Dibucaine 1% 28 GM TUBE TP (06:30)
[2025-07-11] MEDS: Sertraline 50 MG TAB PO (08:28)
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
[2025-07-11 08:55] VITALS: BP 125/82; PULSE 92; RESP 16; TEMP 36.6
[2025-07-11 11:32] LABS: HCT 30.2 % (36.0-46.0); HGB 9.9 g/dL (11.2-15.7); MCH 27.0 pg (27.0-33.0); MCHC 32.8 % (32.0-36.0); MCV 83 fL (80-95); MPV 9.9 fL (8.0-11.0); Platelet Count 311 10^3/uL (130-400); RBC 3.66 10^6/uL (3.93-5.22); RDW 12.8 % (11.7-14.6); RDW-SD 38.4 fL; WBC 14.83 10^3/uL (4.4-10.8)
[2025-07-11 15:24] VITALS: TEMP 36.6
[2025-07-11 17:30] VITALS: BP 118/71; PULSE 95; RESP 16; TEMP 36.4
[2025-07-12] VITALS: BP 113/61; PULSE 86; RESP 16; TEMP 37.1; O2SAT 96
[2025-07-12] MEDS: Docusate Sodium 100 MG CAP PO (06:47)
[2025-07-12] MEDS: Acetaminophen 325 MG TAB 650 MG PO (06:47)
[2025-07-12] MEDS: Ibuprofen 600 MG TAB PO (06:47)
--- NOTE | 2025-07-12 06:58 | W.PM.OBPNV1 ---
Date of service: 07/12/25 Time of Service: 06:58 Assessment and Plan Assessment and plan (1) Term delivered: Status: Acute Assessment and plan: A: PPD#2, pleased with experience Feeding with pumped colostrum and formula Nml recovery. Pt denies concern for her safety, staying with her mother P: Discharge to home today DCF report based on potential FOB release from alf which has not occurred (per pt) F/up at 2 & 6 wks Written instructions reviewed and given to pt Pt declines BCM, states she has no need (2) Anemia, : Status: Acute Assessment and plan: Hgb on PPD#1 9.9, pt asymptomatice Will encourage pt to take irone supplement orally Subjective Subjective Patient comments: No complaints, Pain well controlled, Tolerating diet and Bowel Movement Patient's Mood: tired, pleasant [place] baby status: Doing well, Supplemental feeding going well and Rooming in feeding status: Breast and formula feeding Exam Physical Exam Vital signs: Temp Pulse Resp BP Pulse Ox 98.8 F 86 16 113/61 96 07/12/25 00:00 07/12/25 00:00 07/12/25 00:00 07/12/25 00:00 07/12/25 00:00 Vital Signs Reviewed: Yes Constitutional Constitutional: no acute distress and cooperative HEENT Exam HEENT Exam: Normal Neck Exam Neck Exam: Normal Breast Exam Bilateral: Breast Exam: Normal and Soft Nipple Exam: Normal and Uninjured Respiratory Exam Respiratory Exam: Normal Cardiovascular Exam Cardiovascular Exam: Normal Abdominal Exam Abdomen: Other (soft, nontender) Fundal Exam Fundus: Below Umbilicus and Firm Rectal Exam Rectal Exam: Normal Exam Perineum: Intact Extremities Exam Extremity Exam: Normal, Full ROM and Warm to Touch Back/Spine/Pelvis Exam Back Exam: Normal Skin Exam Skin Exam: Normal Neurological Exam Neurological Exam: Normal Psychiatric Exam Psychiatric Exam: Normal Results Abnormal Lab Findings: Abnormal Labs 07/09/25 07/11/25 15:30 11:27 WBC 14.55 H 14.83 H RBC 3.63 L 3.66 L Hgb 9.8 L 9.9 L Hct 29.9 L 30.2 L Absolute Neutrophils 10.40 H Absolute Monocytes 1.27 H Creatinine 0.5 L AST 9 L ALT 10 L Alkaline Phosphatase 172 H Albumin 2.3 L
[2025-07-12 07:48] VITALS: BP 118/74; PULSE 90; RESP 98; TEMP 36.7
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
[2025-07-12] MEDS: Sertraline 50 MG TAB PO (08:35)
== END 2025-07-12 12:17 | disposition home or self-care (01) | DRG 806 ==
PROVIDERS: Admitting Provider Advanced Practice Midwife; Visit Provider Advanced Practice Midwife
DX: O99.02 Anemia complicating childbirth (principal); O99.354 Diseases of the nervous system complicating childbirth; Z37.0 Single live birth; Z3A.39 39 weeks gestation of pregnancy; O99.344 Other mental disorders complicating childbirth; F41.8 Other specified anxiety disorders; G43.909 Migraine, unspecified, not intractable, without status migrainosus; D64.9 Anemia, unspecified; K21.9 Gastro-esophageal reflux disease without esophagitis; O36.5930 Maternal care for other known or suspected poor fetal growth, third trimester, not applicable or unspecified; O99.334 Smoking (tobacco) complicating childbirth; F17.290 Nicotine dependence, other tobacco product, uncomplicated; O99.62 Diseases of the digestive system complicating childbirth; K59.00 Constipation, unspecified; F14.21 Cocaine dependence, in remission; Z91.414 Personal history of adult intimate partner abuse; Z59.82 Transportation insecurity; Z59.869 Financial insecurity, unspecified
CPT/HCPCS: 80053; 80307; 80348; 85027; 86850; 86900; 86901; 84550; 85025; J2300; J3010